=== PATIENT | female | born 1970 | race Two or more races ===

== ENCOUNTER 2016-02-11 14:53 | Inpatient (IN) | payer OTHER ==
[2016-02-11] MEDS ORDERED: ACETAMINOPHEN 325 MG TAB PO ONE (15:20)
[2016-02-11] MEDS ORDERED: IBUPROFEN 600 MG TAB PO ONE (15:20)
--- NOTE | 2016-02-11 15:20 | CPEKG ---
Heart Rate: 115 RR Interval: 522 P-R Interval: 144 QRSD Interval: 64 QT Interval: 316 QTC Interval: 437 P [place]: 46 QRS [place]: 39 T Wave [place]: 47 EKG Severity - OTHERWISE NORMAL ECG - EKG Impression: SINUS TACHYCARDIA Electronically Signed By: Bowen Arteaga 11-Feb-2016 21:18:04
[2016-02-11] MEDS ORDERED: NS 1,000 ML IV ONE ×2 (15:21)
--- NOTE | 2016-02-11 15:21 | EDPHY ---
H & P Stated Complaint: R ear infection for 10 days Time Seen by Provider: 02/11/16 15:01 HPI/ROS: CHIEF COMPLAINT: fevers, body aches, nausea, vomiting HISTORY OF PRESENT ILLNESS: 45-year-old female presents emergency department complaining of a 7 day history of nasal congestion, cough, sore throat. Patient was seen in the emergency department 4 days ago and diagnosed with a sinusitis and discharged with a prescription for Augmentin which she has been taking twice daily. Patient reports the symptoms have not improved and yesterday she started with dysuria, abdominal pain, flank pain, nausea, vomiting and diarrhea. Patient reports a subjective fever. She has not taken any Tylenol or ibuprofen. Patient denies hematochezia or melena, she denies blood in her vomit. Patient reports shortness of breath. REVIEW OF SYSTEMS: A comprehensive 10 point review of systems is otherwise negative aside from elements mentioned in the history of present illness. Source: Patient Exam Limitations: No limitations, Language barrier - Personal History LMP (Females 10-55): Post Menopausal Current Tetanus/Diphtheria Vaccine: Unsure Current Tetanus Diphtheria and Acellular Pertussis (TDAP): Unsure - Medical/Surgical History Hx Asthma: No Hx Chronic Respiratory Disease: No Hx Diabetes: No Hx Cardiac Disease: No Hx Renal Disease: No Hx Cirrhosis: No Hx Alcoholism: No Hx HIV/AIDS: No Hx Splenectomy or Spleen Trauma: No Other PMH: Lower abdomen tumor removal 10 years ago. - Social History Smoking Status: Never smoked - Physical Exam Exam: Physical Exam Gen: Alert and Oriented HEENT: PERRL, moist mucous membranes, posterior pharynx with erythema, no exudate, submental spaces soft, uvula midline, no tonsillar swelling, bilateral nasal turbinates with swelling and erythema, bilateral TMs with mild erythema NECK: no meningismus CV: Tachycardic rate and regular rhythm PULM: CTAB, no wheezes ABDOMEN: soft, diffusely tender to palpation, BS present BACK: Bilateral CVA tenderness NEURO: Neurologically grossly intact EXTREMITIES: normal appearing SKIN: no rash or break in skin on exposed skin PSYCH: answers questions appropriately. Constitutional: Initial Vital Signs Temperature (C) 37.6 C 02/11/16 14:55 Heart Rate 128 H 02/11/16 14:55 Respiratory Rate 14 02/11/16 14:55 Blood Pressure 114/71 02/11/16 14:55 O2 Sat (%) 85 L 02/11/16 14:55 O2 Delivery Mode Room Air O2 (L/minute) 2 Allergies/Adverse Reactions: No Known Allergies Allergy (Verified 02/07/16 20:25) Home Medications: Medication Instructions Recorded Amoxicillin/Clavulanate Pot 875 mg PO BID 10 Days 02/07/16 [Augmentin 875 mg tab] Medical Decision Making - Diagnostics Imaging: Chest x-ray independently reviewed by me- Impression: No acute cardiopulmonary process. Dictated By: José Miguel Brewer MD CT abdomen pelvis with IV contrast- Impression: Normal CT of the abdomen and pelvis with contrast.. Critical results relayed by Dr. Brewer to MEENU Miller on February 11, 2016 at 1658 hours. Dictated By: José Miguel Brewer MD ED Course/Re-evaluation: IV established, CBC, chemistry panel, chest x-ray, urinalysis, lactate, blood cultures and EKG ordered. 2 L of normal saline ordered along with Tylenol and ibuprofen. Patient with a room air oxygen saturation of 90% heart rate 130 the cardiac exercise physiologist, temperature 37.8degrees. On exam she has diffuse abdominal tenderness to palpation and bilateral CVA tenderness, she reports dysuria for the past 2 days, I am concerned for a pyelonephritis. 3pm-CBC with no elevated white blood cell count, chemistry panel unremarkable, chest x-ray shows no evidence of pneumonia, urinalysis shows no evidence of infection. Due to the patient's continued abdominal tenderness to palpation a CT abdomen pelvis has been ordered which is also negative. The patient continues with hypoxemia with room air oxygen saturations between 86 and 91%. 530pm-patient's room air oxygen saturations are 86%, she will be admitted to the [facility] to Dr. Keira Acosta, D-dimer is pending. I do not suspect a pulmonary embolism. Differential Diagnosis: Diagnosis considered but not limited to viral syndrome, gastroenteritis, pneumonia, pulmonary embolism, sinusitis. - Data Points Laboratory Results: Laboratory Results 02/11/16 15:13 02/12/16 05:00 02/12/16 05:00 Sodium 141 mEq/L (134-144) Potassium 4.0 mEq/L (3.5-5.2) Chloride 110 mEq/L (97-110) Carbon Dioxide 20 L mEq/l (22-31) Anion Gap 11 mEq/L (8-16) BUN 14 mg/dL (7-23) Creatinine 0.6 mg/dL (0.6-1.0) Estimated GFR > 60 Glucose 89 mg/dL (70-100) Calcium 8.1 L mg/dL (8.5-10.4) Medications Given: Discontinued Medications Acetaminophen (Tylenol) 650 mg PO EDNOW ONE Stop: 02/11/16 15:21 Last Admin: 02/11/16 15:53 Dose: 650 mg Cefuroxime Axetil (Ceftin) 250 mg PO BID DIANA PRN Reason: Protocol Stop: 03/12/16 20:59 Last Admin: 02/12/16 14:55 Dose: Not Given Sodium Chloride (Ns) 1,000 mls @ 0 mls/hr IV ONCE ONE PRN Reason: Wide Open Stop: 02/11/16 15:22 Last Admin: 02/11/16 16:03 Dose: 1,000 mls Sodium Chloride (Ns) 1,000 mls @ 0 mls/hr IV ONCE ONE PRN Reason: Wide Open Stop: 02/11/16 15:22 Last Admin: 02/11/16 15:22 Dose: 1,000 mls Ibuprofen (Motrin) 600 mg PO EDNOW ONE Stop: 02/11/16 15:21 Last Admin: 02/11/16 15:53 Dose: 600 mg Departure - Departure Disposition: [facility] Inpatient Acute Clinical Impression: Viral syndrome, Vomiting and diarrhea, Hypoxemia Condition: Fair
[2016-02-11 15:24] LABS: % IMMATURE GRANULYOCYTES 0.3 % (0.0-1.1); ABSOLUTE IMMATURE GRANULOCYTES 0.03 10^3/uL (0.00-0.10); ADD DIFF? NO; ADD MORPH? NO; ADD SCAN? NO; ATYPICAL LYMPHOCYTE FLAG 60 (0-99); FRAGMENT RBC FLAG 0 (0-99); HEMATOCRIT 43.8 % (38.0-47.0); HEMOGLOBIN 15.3 g/dL (12.6-16.3); LEFT SHIFT FLG 0 (0-99); LIPEMIA HEMOLYSIS FLAG 90 (0-99); MEAN CELL HEMOGLOBIN 29.5 pg (27.9-34.1); MEAN CELL HEMOGLOBIN CONCENTR. 34.9 g/dL (32.4-36.7); MEAN CELL VOLUME 84.6 fL (81.5-99.8); MEAN PLATELET VOLUME 10.6 fL (8.7-11.7); PLATELET CLUMPS FLAG 10 (0-99); PLATELET COUNT 332 10^3/uL (150-400); RED BLOOD CELL COUNT 5.18 10^6/uL (4.18-5.33); RED CELL DISTRIBUTION WIDTH 12.8 % (11.5-15.2)
[2016-02-11 15:45] LABS: COLOR AMBER; LEUKOCYTE ESTERASE,URINE NEGATIVE (NEGATIVE); NITRITE,URINE NEGATIVE (NEGATIVE)
[2016-02-11 15:47] LABS: ANION GAP 16 mEq/L (8-16); CALCIUM 9.5 mg/dL (8.5-10.4); CARBON DIOXIDE 19 mEq/l (22-31); CHLORIDE 103 mEq/L (97-110); CREATININE 0.9 mg/dL (0.6-1.0); GLOMERULAR FILTRATION RATE > 60; GLUCOSE 118 mg/dL (70-100); POTASSIUM 4.6 mEq/L (3.5-5.2); SODIUM 138 mEq/L (134-144)
[2016-02-11 15:50] LABS: MUCUS 1+ /lpf (NONE-1+)
--- NOTE | 2016-02-11 16:09 | DX ---
PA and Lateral Chest February 11, 2016 1520 hours Comparison: May 12, 2013. Clinical Indications: Chest pain. Findings: The lungs are clear, and no masses are found. The heart and pulmonary vessels are normal. There are no pleural effusions and no pneumothorax. The bones are unremarkable for this age. Impression: No acute cardiopulmonary process.
[2016-02-11] MEDS ORDERED: IOPAMIDOL (ISOVUE-300) 100 ML BTL IV ONE (16:26)
[2016-02-11] MEDS ORDERED: ONDANSETRON 4 MG/2 ML VIAL ONE (16:56)
[2016-02-11 17:57] LABS: ALBUMIN 4.4 g/dL (3.5-5.0); BILIRUBIN,TOTAL 0.7 mg/dL (0.1-1.4); BILIRUBIN-CONJUGATED 0.4 mg/dL (0.0-0.5); BILIRUBIN-UNCONJUGATED 0.3 mg/dL (0.0-1.1); TOTAL PROTEIN 8.3 g/dL (6.3-8.2)
[2016-02-11] MEDS ORDERED: ACETAMINOPHEN 325 MG TAB PO PRN (18:03)
[2016-02-11] MEDS ORDERED: ONDANSETRON 4 MG/2 ML VIAL IVP PRN (18:03)
[2016-02-11] MEDS ORDERED: HYDROCODONE/APAP 5/325 TAB PO PRN (18:03)
[2016-02-11] MEDS ORDERED: ALBUTEROL 3 ML DEYVIAL IH PRN (18:03)
[2016-02-11] MEDS ORDERED: ONDANSETRON DISINTEGRATING 4 MG TAB PO PRN (18:03)
[2016-02-11] MEDS ORDERED: BENZONATATE 100 MG CAP PO PRN (18:08)
--- NOTE | 2016-02-11 19:21 | CT ---
CT Paranasal Sinuses (Without Contrast) 1833 hours History: Fever and facial pain. Rule out sinusitis.. Technique: Spiral imaging was obtained through the paranasal sinuses in axial plane with coronal kendra nstructed imaging performed. The data was reformatted in bone algorithm. Dose reduction techniques we re utilized. Findings: There is mild mucosal thickening right maxillary sinus. The remainder of the paranasal sin uses are clear without additional mucosal thickening, air-fluid levels, or erosions. The ostiomeatal complex is widely patent on the left but mildly narrowed on the right secondary to some mucosal thick ening No ectopic air cells are seen. The nasal turbinates are normal in appearance. The osseous nasal septum appears to be midline. The right frontal sinus is hypoplastic. The mastoid air cells are garland r. Impression: 1. Mild mucosal thickening right maxillary sinus without air-fluid levels. 2. No additional paranasal sinus disease. 3. Relative narrowing of the right ostiomeatal complex secondary to mucosal thickening.
--- NOTE | 2016-02-11 19:29 | GHP ---
[f rep st] HISTORY AND PHYSICAL DATE OF ADMISSION: 02/11/2016 CHIEF COMPLAINT: Fever and cough. HISTORY OF PRESENT ILLNESS: The patient is a Haitian-speaking woman, who is healthy, who comes in with 7 days of congestion. She was initially seen with sinus complaints and was placed on Augmentin. Over 3 days ago, she developed lower abdominal pain, and started having nausea and diarrhea. Because of this, she came into the emergency department for further evaluation and treatment. While here, labs were done which were unremarkable. Because of her abdominal pain, an abdominal CT was done which was negative. While watching her in the emergency department, she was 96% on room air; however, dropped down to 86%, apparently with a good waveform, and is being admitted for hypoxia. Currently on room air, she is back up to 96%. 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 She has had no palpitations. She has fevers, chills, and some diaphoresis. She has had some dysuria, diarrhea as noted above, and myalgias. No significant joint pains. No rash. Her main complaint at this time is sinus congestion behind her eyes and some ear pain. She has had no recent travel. No recent surgeries. She is otherwise pretty active. REVIEW OF SYSTEMS: A 10-point review of systems was done and is negative except as stated in HPI. PAST MEDICAL HISTORY: Prediabetes, currently on no medications. PAST SURGICAL HISTORY: Ovarian cysts, remotely. FAMILY HISTORY: Mother with breast cancer. Father with diabetes. SOCIAL HISTORY: She lives alone but cares for her granddaughter. She does not smoke. She does not drink alcohol. MEDICATIONS: None. ALLERGIES: No known drug allergies. PHYSICAL EXAMINATION: VITAL SIGNS: Temperature 37.6, heart rate 104, blood pressure 110/78, respirations 16. She is 96% on 2 L and currently 96% on room air as well. She did drop down to 85% on room air previously. I am not sure if that was a real reading or not. GENERAL: She is uncomfortable but well nourished, well developed. HEENT: Pupils are equal. Extraocular movements intact. Mucous membranes are moist. Oropharynx is clear. NECK: Supple. No adenopathy. She does have some sinus tenderness on maxillary and behind her ears. HEART: Regular rate and rhythm. No murmurs, gallops, or rubs. LUNGS: Clear bilaterally. No wheezes, rhonchi, or rales. ABDOMEN: Soft with some mild tenderness but no guarding, rebound. Bowel sounds are normal. EXTREMITIES : No clubbing, cyanosis, or edema. MUSCULOSKELETAL: No joint effusions or deformities. NEUROLOGIC: Fairly unremarkable. SKIN: Intact. No rash. She is diaphoretic. LABORATORY DATA: CBC is within normal limits. Chemistries are also normal. Slightly elevated CO2 of 19. LFTs are mildly elevated with an AST of 60 and ALT of 110. Urinalysis is normal. Influenza is negative. D-dimer is mildly elevated at 0.72. Abdominal CT scan reportedly was unremarkable. Chest x-ray, personally reviewed and interpreted: Shows no acute cardiopulmonary process. Electrocardiogram, personally reviewed and interpreted: Sinus tachycardia. ASSESSMENT/PLAN: 1. A 45-year-old woman presents with likely viral syndrome. I suspect her GI symptoms started after her initial presentation and is likely secondary to the Augmentin she was prescribed a week ago causing diarrhea and nausea. Given her ongoing symptoms of congestion and sinus irritation, we will check a CT of her sinus. Will change her antibiotics from Augmentin to cefuroxime, and follow her clinically. Will provide antipruritics and pain medications as needed. 2. Certainly if her sinus CT is completely unremarkable, can likely discontinue the cefuroxime at the time of discharge. 3. Hypoxia. Unclear how significant this is. Currently, while I am talking to her throughout my exam, she was 96% with a good waveform on room air. She also has fairly thick nails. She does have artificial nails on all her fingertips where they were measuring her oxygen saturation, although the nurse said she did have a good waveform when her O2 saturation dropped. Her D-dimer is just minimally elevated at this time. She has no risk factors for pulmonary embolism. I suspect her current symptomatology is secondary to a viral syndrome as she has been sick for a week and will just monitor oxygen saturation. Certainly if she has ongoing hypoxia, could check a CT angiogram at that time; however at this time, my suspicion is quite low for acute pulmonary embolism. 4. DVT prophylaxis. Since she has been ill and will be fairly sedentary here in the hospital, will place her on low-molecular weight heparin. /[id number]/MODL MTDD
[2016-02-11] MEDS: CEFUROXIME AXETIL 250 MG TAB PO SCH (20:09)
[2016-02-11] MEDS: IBUPROFEN 200 MG TAB PO PRN (20:09)
[2016-02-11] MEDS: LOPERAMIDE HCL 2 MG CAP PO PRN (21:16)
[2016-02-12 06:01] LABS: ANION GAP 11 mEq/L (8-16); CALCIUM 8.1 mg/dL (8.5-10.4); CARBON DIOXIDE 20 mEq/l (22-31); CHLORIDE 110 mEq/L (97-110); CREATININE 0.6 mg/dL (0.6-1.0); GLOMERULAR FILTRATION RATE > 60; GLUCOSE 89 mg/dL (70-100); SODIUM 141 mEq/L (134-144)
--- NOTE | 2016-02-12 06:50 | CT ---
CT Scan of the Abdomen and Pelvis (With Contrast) Clinical Indications: Generalized abdominal pain, nausea, vomiting, and fever. Technique: Dilute contrast was given orally prior to scanning. 90 mL of Isovue-300 were given intra venously by machine power injection. Multidetector helical CT imaging was performed from the diaphra gm to the symphysis pubis. Dose reduction techniques were utilized. Findings: Abdomen: The lung bases are clear, and there is no significant pleural fluid. The liver is mildly d iffusely fatty infiltrated. The biliary ducts and gallbladder are unremarkable. The pancreas and spl een are normal. The adrenal glands and kidneys are normal. No adenopathy and no masses are found. No aneurysm of the abdominal aorta. Pelvis: The urinary bladder is unremarkable. No free fluid in the pelvis. No masses are identified. Bowel loops are normal. Appendix is visualized and normal. Impression: Normal CT of the abdomen and pelvis with contrast.. Critical results relayed by Dr. Brewer to MEENU Miller on February 11, 2016 at 1658 hours.
[2016-02-12] MEDS: LOPERAMIDE HCL 2 MG CAP PO PRN ×2 (09:52→16:39)
[2016-02-12] MEDS: ENOXAPARIN 40 MG/0.4 ML SYR SC SCH (09:54)
--- NOTE | 2016-02-12 10:04 | HOSPPROG ---
Hospitalist Progress Note Assessment/Plan: 45 y/o female presenting with fever, cough, diarrhea, and nausea found to be hypoxemic in ED #nausea and Diarrhea after being on Augmentin with family members suffering with similar symptoms with dehydration -ddx acute gastroenteritis vs adverse effect from Augmentin vs Cdiff plan: continue supportive care -check stool cdiff, culture, o&p #resolved episodic hypoxemia with mild tachycardia and elevated dimer suspect related to atx in the setting of acute illness and abdominal discomfort. plan: continue to monitor for hypoxemia and consider cta chest if hypoxemia worsening and tachycardia not improving with hydration #Sinus congestion doubt acute bacterial sinusitis (sinus ct was reviewed) -monitor off antibiotics. 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 She continues to have severe diarrhea and nausea but no vomiting. She denies any chest pain but feels very weak and short of breath. She is not eating much due to nausea. Objective: Vital Signs Temp Pulse Resp BP Pulse Ox 36.8 C 105 H 16 100/63 90 L 02/12/16 08:16 02/12/16 08:16 02/12/16 08:16 02/12/16 08:16 02/12/16 08:16 Laboratory Results 02/12/16 05:00 - Physical Exam Constitutional: no apparent distress, appears nourished, not in pain Cardiovascular: no murmur, rub, or gallop, tachycardia, No JVD, No edema Respiratory: no respiratory distress, no rales or rhonchi, clear to auscultation , reduced air movement Gastrointestinal: normoactive bowel sounds, soft, non-tender abdomen, no palpable masses, No guarding, No rebound Psychiatric: interacting appropriately, not anxious, not encephalopathic, thought process linear ICD10 Worksheet Patient Problems: Problems Problem Status Diagnosed Hypoxemia Acute Viral syndrome Acute Vomiting and diarrhea Acute Acute interstitial pneumonia Acute Fever Acute Liver function tests abnormal Acute Respiratory failure Acute Sepsis - Septicemia Acute
[2016-02-12 14:25] LABS: FECES RBC NONE SEEN (NONE SEEN); FECES WBC RARE (NONE SEEN); O/P DESCRIPTION LIQUID BROWN STOOL; O/P DIRECT NONE SEEN (NONE SEEN)
[2016-02-12] MEDS: CEFUROXIME AXETIL 250 MG TAB PO SCH (14:55)
[2016-02-12] MEDS: IBUPROFEN 200 MG TAB PO PRN ×2 (16:38→20:04)
[2016-02-13 05:05] VITALS: RESP 16
[2016-02-13] MEDS: IBUPROFEN 200 MG TAB PO PRN ×2 (05:05→10:11)
[2016-02-13 05:49] LABS: ANION GAP 11 mEq/L (8-16); CALCIUM 8.6 mg/dL (8.5-10.4); CARBON DIOXIDE 22 mEq/l (22-31); CHLORIDE 107 mEq/L (97-110); CREATININE 0.6 mg/dL (0.6-1.0); GLOMERULAR FILTRATION RATE > 60; GLUCOSE 87 mg/dL (70-100); POTASSIUM 3.9 mEq/L (3.5-5.2); SODIUM 140 mEq/L (134-144)
[2016-02-13 06:36] LABS: % IMMATURE GRANULYOCYTES 0.6 % (0.0-1.1); ABSOLUTE IMMATURE GRANULOCYTES 0.03 10^3/uL (0.00-0.10); ADD DIFF? NO; ADD MORPH? NO; ADD SCAN? YES; FRAGMENT RBC FLAG 0 (0-99); HEMATOCRIT 39.6 % (38.0-47.0); HEMOGLOBIN 13.3 g/dL (12.6-16.3); LEFT SHIFT FLG 10 (0-99); LIPEMIA HEMOLYSIS FLAG 80 (0-99); MEAN CELL HEMOGLOBIN 28.6 pg (27.9-34.1); MEAN CELL HEMOGLOBIN CONCENTR. 33.6 g/dL (32.4-36.7); MEAN CELL VOLUME 85.2 fL (81.5-99.8); MEAN PLATELET VOLUME 10.7 fL (8.7-11.7); PLATELET CLUMPS FLAG 10 (0-99); PLATELET COUNT 293 10^3/uL (150-400); RED BLOOD CELL COUNT 4.65 10^6/uL (4.18-5.33); RED CELL DISTRIBUTION WIDTH 13.1 % (11.5-15.2)
[2016-02-13 06:40] LABS: ATYPICAL LYMPHOCYTE FLAG 100 (0-99)
[2016-02-13 07:24] LABS: SCAN POSITIVE
[2016-02-13 07:28] LABS: PLATELET ESTIMATE ADEQUATE (ADEQ)
--- NOTE | 2016-02-13 10:05 | PDDCSUM ---
Discharge Summary Discharge Summary: Dates of service 02/10-02/13/16 Hospital course by problem: # viral gastroenteritis: multiple family members with similar sxs, c diff negative. Improved, tolerating food. Still having loose BMs. Dc home with immodium # hypoxia: briefly in the ER, resolved, CXR negative # sinus congestion: face CT without e/o significant sinusitis, had several days of abx prior to admission and no need for further abx at this point Dispo home in good condition >35 min spent in care of this patient more than half in face to face counseling and coordination of care
[2016-02-13] MEDS: ENOXAPARIN 40 MG/0.4 ML SYR SC SCH (10:11)
[2016-02-13 13:13] VITALS: BP 95/62; PULSE 84; TEMP 97.6; O2SAT 93
[2016-02-13 14:43] LABS: O/P CONCENTRATION NONE SEEN (NONE SEEN)
[2016-02-14 11:02] LABS: O/P TRICHROME NONE SEEN (NONE SEEN)
== END 2016-02-13 13:31 | disposition home or self-care (01) | DRG 392 ==
LOC: F1N 18:09 → OBSVTOIN 02-12 09:55 → F1N 02-12 14:44
PROVIDERS: ADMIT Internal Medicine; ATTEND Internal Medicine
DX: A08.4 Viral intestinal infection, unspecified (principal); R73.03 Prediabetes; R09.02 Hypoxemia
CPT/HCPCS: G0378; J1650; J2405; Q9967

== ENCOUNTER 2016-06-05 16:34 | Emergency (ER) | payer OTHER ==
[2016-06-05 16:46] VITALS: RESP 16; TEMP 97.5; O2SAT 98
[2016-06-05] MEDS ORDERED: IBUPROFEN 600 MG TAB PO ONE (18:16)
[2016-06-05] MEDS ORDERED: METHOCARBAMOL 750 MG TAB PO ONE (18:16)
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
[2016-06-05 19:18] VITALS: BP 130/82; PULSE 74
== END 2016-06-05 19:18 | disposition home or self-care (01) ==
DX: M62.830 Muscle spasm of back (principal); V49.40XA Driver injured in collision with unspecified motor vehicles in traffic accident, initial encounter; Y92.410 Unspecified street and highway as the place of occurrence of the external cause; Y99.8 Other external cause status; Y93.89 Activity, other specified